=== PATIENT | female | born 2000 | race Caucasian/White ===

== ENCOUNTER 2025-03-25 22:09 | Emergency (ER) | payer BC, OTHER | END 2025-03-25 23:39 | disposition home or self-care (01) | LOC: NAV ERS 22:09 | DX: O99.352 Diseases of the nervous system complicating pregnancy, second trimester (principal); G43.109 Migraine with aura, not intractable, without status migrainosus; Z3A.22 22 weeks gestation of pregnancy | CPT/HCPCS: 99283 ==